=== PATIENT | male | born 1985 | race Caucasian/White ===

== ENCOUNTER 2025-04-16 00:13 | Emergency (ER) | payer MEDICAID, OTHER ==
[~2025-04-16] VITALS: Ht 185.4 cm; Wt 95.0 kg
[~2025-04-16 00:13] MED LIST: HYDR-1421
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
[2025-04-16] MEDS: MORPHINE SULFATE 4 MG/ML SYR/VIAL IV ONE (00:48)
[2025-04-16 00:50] LABS: Hematocrit 50.9 % (41.0-53.0); Hemoglobin 16.8 g/dL (13.5-17.5); Mean Corpuscular Hemoglobin 30.0 pg (28.0-32.0); Mean Corpuscular Volume 90.9 fL (80.0-100.0); Nucleated Red Blood Cells % 0.0 %
[2025-04-16 00:56] LABS: Potassium 3.6 mmol/L (3.5-5.1); Sodium 140 mmol/L (136-145)
--- NOTE | 2025-04-16 00:56 | ECG ---
[facility] Test Date: 2025-04-16 Test Time: 00:15:37 Pat Name: SHRUTHI LINDER Department: ED Room: Gender: M Avionics Supervisor: JURGEN : 1985 Requested By: ADRYAN RUSSO Order Number: [id number] Reading MD: Almas Shipman Measurements Intervals [place] Rate: 96 P: 51 WA: 153 QRS: -18 QRSD: 85 T: 53 QT: 351 QTc: 444 Interpretive Statements Sinus rhythm Probable left atrial enlargement Borderline left axis deviation Electronically Signed On 04-16-2025 19:08:18 PDT by Almas Shipman Please click the below link to view image of tracing.
[2025-04-16 00:57] LABS: Anion Gap 10 (5-15); Carbon Dioxide 23 mmol/L (20-31)
[2025-04-16] MEDS: ONDANSETRON HCL 4 MG/2 ML VIAL IV ONE (00:57)
[2025-04-16] MEDS: IOHEXOL 300 MG/ML 100ML BOTTLE IJ ONE (00:57)
[2025-04-16 01:00] VITALS: PULSE 88; RESP 18; O2SAT 93
[2025-04-16] MEDS: METHOCARBAMOL 500 MG TAB PO ONE (01:00)
[2025-04-16 01:02] LABS: BUN/Creatinine Ratio 15.5 (10.0-20.0); Blood Urea Nitrogen 13 mg/dL (9-23)
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
[2025-04-16 01:17] LABS: Calcium 8.6 mg/dL (8.7-10.4); Chloride 107 mmol/L (98-107); Glucose 126 mg/dL (74-106)
[2025-04-16] MEDS ORDERED: IBUP-1455 PO (02:48)
[2025-04-16] MEDS ORDERED: HYDR-4798 PO (02:48)
[2025-04-16] MEDS ORDERED: FAMO-161 PO (02:48)
[2025-04-16 03:05] VITALS: BP 117/84; PULSE 86; RESP 17; TEMP 98.2; O2SAT 91
== END 2025-04-16 03:47 | disposition home or self-care (01) ==
LOC: ER 00:13 → EDBD 00:13 → ER 03:47
DX: S22.20XA Unspecified fracture of sternum, initial encounter for closed fracture (principal); F17.210 Nicotine dependence, cigarettes, uncomplicated; Z87.442 Personal history of urinary calculi; Z87.11 Personal history of peptic ulcer disease; V89.2XXA Person injured in unspecified motor-vehicle accident, traffic, initial encounter; Y93.89 Activity, other specified; Y92.488 Other paved roadways as the place of occurrence of the external cause; Y99.8 Other external cause status
CPT/HCPCS: 36415; 71260; 80048; 83880; 84484; 85025; 93005; 96374; 96375; 99285; J2270; J2405; Q9967